=== PATIENT | female | born 1970 | race Caucasian/White ===

== ENCOUNTER 2022-06-23 13:58 | Inpatient (IN) | payer OTHER ==
[2022-06-23 15:38] VITALS: BMI 23.8
[2022-06-23] MEDS ORDERED: MAGNESIUM HYDROX 2400MG/30ML ORAL SUSPENSION 30 ML CUP PO PRN (17:53)
[2022-06-23] MEDS ORDERED: BENZOCAINE/MENTHOL (CHLORASEPTIC ) LOZENGE MM PRN (17:53)
[2022-06-23] MEDS ORDERED: LOPERAMIDE HCL 2 MG CAPSULE PO PRN (17:53)
[2022-06-23] MEDS ORDERED: MAGNESIUM CITRATE 300 ML BOTTLE PO PRN (17:53)
[2022-06-23] MEDS ORDERED: ACETAMINOPHEN 325 MG TABLET (FP) PO PRN ×2 (17:53)
[2022-06-23] MEDS ORDERED: IBUPROFEN 600 MG TABLET (FP) PO PRN (17:53)
[2022-06-23] MEDS ORDERED: BISMUTH SUBSALICYLATE 524 MG/30 ML PO PRN (17:53)
[2022-06-23] MEDS ORDERED: METHOCARBAMOL 500 MG TABLET PO PRN (17:53)
[2022-06-23] MEDS ORDERED: IBUPROFEN 400 MG TABLET (FP) PO PRN (17:53)
[2022-06-23] MEDS ORDERED: chlordiazePOXIDE HCL 25 MG CAPSULE PO PRN (17:53)
[2022-06-23] MEDS ORDERED: ONDANSETRON *ODT* 4 MG TABLET SL PRN (17:53)
[2022-06-23] MEDS: PRENATAL VITAMINS W/ FOLIC ACID TABLET (FP) PO SCH (18:59)
[2022-06-23] MEDS: hydrOXYzine PAMOATE 25 MG CAPSULE (FP) PO SCH ×2 (19:06→23:22)
[2022-06-23] MEDS: THIAMINE HCL 100 MG TABLET (FP) PO SCH (22:37)
[2022-06-23] MEDS: levETIRAcetam 500 MG TABLET (FP) PO SCH (22:37)
[2022-06-23] MEDS: chlordiazePOXIDE HCL 25 MG CAPSULE PO SCH (22:37)
[2022-06-23] MEDS: MELATONIN 5 MG TABLETS PO SCH (22:37)
[2022-06-24] MEDS: chlordiazePOXIDE HCL 25 MG CAPSULE PO SCH ×4 (06:10→22:45)
[2022-06-24] MEDS: hydrOXYzine PAMOATE 25 MG CAPSULE (FP) PO SCH (06:11)
[2022-06-24] MEDS ORDERED: hydrOXYzine PAMOATE 25 MG CAPSULE (FP) PO PRN (09:20)
[2022-06-24] MEDS ORDERED: methaDONE HCL 10 MG TABLET PO SCH (09:30)
[2022-06-24] MEDS: levETIRAcetam 500 MG TABLET (FP) PO SCH ×2 (10:42→22:44)
[2022-06-24] MEDS: PRENATAL VITAMINS W/ FOLIC ACID TABLET (FP) PO SCH (10:42)
[2022-06-24 11:08] LABS: HEMATOCRIT 43.2 % (32.4-45.2); HEMOGLOBIN 14.3 GM/dL (10.7-15.3); MCH 30.5 pg (25.7-33.7); MEAN CELL VOLUME 92.4 fl (80-96); MEAN PLT VOLUME 8.3 fl (7.5-11.1); PLATELET COUNT 223 10^3/uL (134-434); RBC 4.68 M/mm3 (3.60-5.2); RDW 13.8 % (11.6-15.6); WHITE BLOOD COUNT 4.5 K/mm3 (4.0-10.0)
[2022-06-24 11:43] LABS: CALCIUM 9.9 mg/dL (8.5-10.1)
[2022-06-24 11:44] LABS: ALBUMIN 3.2 g/dl (3.4-5.0); BLOOD UREA NITROGEN 12.3 mg/dL (7-18)
[2022-06-24 11:47] LABS: CREATININE 0.7 mg/dL (0.55-1.3)
[2022-06-24 11:48] LABS: BILIRUBIN,TOTAL 0.3 mg/dL (0.2-1)
[2022-06-24 11:49] LABS: TOT PROT 8.1 g/dl (6.4-8.2)
[2022-06-24] MEDS: DICYCLOMINE HCL 10 MG CAPSULE PO PRN (20:33)
[2022-06-24] MEDS: NICOTINE 10 MG CARTRIDGE (INHALER) IH PRN (20:33)
[2022-06-24] MEDS: MELATONIN 5 MG TABLETS PO SCH (22:44)
[2022-06-24] MEDS: THIAMINE HCL 100 MG TABLET (FP) PO SCH (22:44)
[2022-06-25] MEDS: chlordiazePOXIDE HCL 25 MG CAPSULE PO SCH ×4 (05:45→23:21)
[2022-06-25] MEDS: NICOTINE 10 MG CARTRIDGE (INHALER) IH PRN (10:45)
[2022-06-25] MEDS: levETIRAcetam 500 MG TABLET (FP) PO SCH ×2 (10:45→22:22)
[2022-06-25] MEDS: PRENATAL VITAMINS W/ FOLIC ACID TABLET (FP) PO SCH (10:45)
[2022-06-25] MEDS: DICYCLOMINE HCL 10 MG CAPSULE PO PRN (18:15)
[2022-06-25] MEDS: MAG HYDROX/AL HYDROX/SIMETH 30 ML UNIT-DOSE CUP PO PRN (19:54)
[2022-06-25] MEDS: MELATONIN 5 MG TABLETS PO SCH (22:22)
[2022-06-25] MEDS: THIAMINE HCL 100 MG TABLET (FP) PO SCH (22:22)
[2022-06-26] MEDS ORDERED: chlordiazePOXIDE HCL 10 MG CAPSULE PO PRN
[2022-06-26] MEDS: chlordiazePOXIDE HCL 10 MG CAPSULE PO SCH ×4 (06:14→22:54)
[2022-06-26] MEDS: NICOTINE 10 MG CARTRIDGE (INHALER) IH PRN ×3 (06:15→18:07)
[2022-06-26] MEDS: PRENATAL VITAMINS W/ FOLIC ACID TABLET (FP) PO SCH (10:10)
[2022-06-26] MEDS: levETIRAcetam 500 MG TABLET (FP) PO SCH ×2 (10:10→22:53)
[2022-06-26] MEDS: MAG HYDROX/AL HYDROX/SIMETH 30 ML UNIT-DOSE CUP PO PRN (14:38)
[2022-06-26] MEDS: MELATONIN 5 MG TABLETS PO SCH (22:53)
[2022-06-26] MEDS: THIAMINE HCL 100 MG TABLET (FP) PO SCH (22:53)
[2022-06-27] MEDS: chlordiazePOXIDE HCL 10 MG CAPSULE PO SCH ×2 (05:26→18:07)
[2022-06-27] MEDS: NICOTINE 10 MG CARTRIDGE (INHALER) IH PRN ×4 (05:35→18:09)
[2022-06-27] MEDS: levETIRAcetam 500 MG TABLET (FP) PO SCH ×2 (09:46→22:51)
[2022-06-27] MEDS: PRENATAL VITAMINS W/ FOLIC ACID TABLET (FP) PO SCH (09:46)
[2022-06-27] MEDS: MAG HYDROX/AL HYDROX/SIMETH 30 ML UNIT-DOSE CUP PO PRN (09:46)
[2022-06-27] MEDS: MELATONIN 5 MG TABLETS PO SCH (22:51)
[2022-06-27] MEDS: THIAMINE HCL 100 MG TABLET (FP) PO SCH (22:51)
[2022-06-28] MEDS ORDERED: chlordiazePOXIDE HCL 10 MG CAPSULE PO ONE (05:00)
[2022-06-28] MEDS: DICYCLOMINE HCL 10 MG CAPSULE PO PRN (06:01)
[2022-06-28] MEDS: NICOTINE 10 MG CARTRIDGE (INHALER) IH PRN ×3 (06:03→12:42)
[2022-06-28 09:10] VITALS: RESP 18
[2022-06-28] MEDS: levETIRAcetam 500 MG TABLET (FP) PO SCH (10:25)
[2022-06-28] MEDS: PRENATAL VITAMINS W/ FOLIC ACID TABLET (FP) PO SCH (10:25)
[2022-06-28 13:48] VITALS: BP 104/65; PULSE 63; TEMP 97.3
== END 2022-06-28 15:16 | disposition home or self-care (01) | DRG 773 ==
LOC: YASAS 13:58 → Y3N 17:03
PROVIDERS: ADMIT Allergy & Immunology; ATTEND Surgery
PROC: HZ2ZZZZ Detoxification Services for Substance Abuse Treatment (ICD-10-PCS; principal; 2022-06-23)
DX: F11.23 Opioid dependence with withdrawal (principal); F10.230 Alcohol dependence with withdrawal, uncomplicated; F14.20 Cocaine dependence, uncomplicated; F17.210 Nicotine dependence, cigarettes, uncomplicated; G40.909 Epilepsy, unspecified, not intractable, without status epilepticus; W18.39XA Other fall on same level, initial encounter; Y93.89 Activity, other specified; Y92.230 Patient room in hospital as the place of occurrence of the external cause; Z28.310 Unvaccinated for COVID-19; Z88.0 Allergy status to penicillin; Z91.013 Allergy to seafood
CPT/HCPCS: 36415; 80053; 81025; 85027; 86780; 93005; 93010; C9803-CS; U0003; U0005

== ENCOUNTER 2023-05-02 12:06 | Inpatient (IN) | payer OTHER ==
[2023-05-02 12:30] VITALS: BMI 24.2
[2023-05-02] MEDS ORDERED: AMMONIUM LACTATE 12% LOTION 225 GM BOTTLE TP PRN (14:18)
[2023-05-02] MEDS ORDERED: COLLOIDAL OATMEAL 1 BAR EACH TP PRN (14:18)
[2023-05-02] MEDS ORDERED: guaiFENesin 600 MG TABLET.ER (FP) PO PRN (14:18)
[2023-05-02] MEDS ORDERED: NICOTINE POLACRILEX 2 MG GUM BUC PRN (14:18)
[2023-05-02] MEDS ORDERED: NICOTINE 10 MG CARTRIDGE (INHALER) IH PRN (14:18)
[2023-05-02] MEDS ORDERED: NALOXONE HCL (KLOXXADO) 8 MG SPRAY NS PRN (14:18)
[2023-05-02] MEDS ORDERED: NALOXONE HCL 0.4 MG/ML VIAL IM PRN (14:18)
[2023-05-02] MEDS ORDERED: MAGNESIUM HYDROX 2400MG/30ML ORAL SUSPENSION 30 ML CUP PO PRN (14:18)
[2023-05-02] MEDS ORDERED: ONDANSETRON *ODT* 4 MG TABLET SL PRN (14:18)
[2023-05-02] MEDS ORDERED: LOPERAMIDE HCL 2 MG CAPSULE PO PRN (14:18)
[2023-05-02] MEDS ORDERED: hydrOXYzine PAMOATE 25 MG CAPSULE (FP) PO PRN (14:18)
[2023-05-02] MEDS ORDERED: POLYETHYLENE GLYCOL (HEALTHYLAX) 3350 17 GM PACKET PO PRN (14:18)
[2023-05-02] MEDS ORDERED: BENZOCAINE/MENTHOL (CHLORASEPTIC ) LOZENGE MM PRN (14:18)
[2023-05-02] MEDS ORDERED: BISMUTH SUBSALICYLATE 262 MG/15 ML BTL PO PRN (14:18)
[2023-05-02] MEDS ORDERED: MAG HYDROX/AL HYDROX/SIMETH 30 ML UNIT-DOSE CUP PO PRN (14:18)
[2023-05-02] MEDS ORDERED: METHOCARBAMOL 500 MG TABLET PO PRN (14:18)
[2023-05-02] MEDS ORDERED: IBUPROFEN 400 MG TABLET (FP) PO PRN (14:18)
[2023-05-02] MEDS ORDERED: DICYCLOMINE HCL 10 MG CAPSULE PO PRN (14:18)
[2023-05-02] MEDS ORDERED: ACETAMINOPHEN 325 MG TABLET (FP) PO PRN (14:18)
[2023-05-02] MEDS ORDERED: BENZONATATE 200 MG CAPSULE PO PRN (14:18)
[2023-05-02] MEDS ORDERED: IBUPROFEN 600 MG TABLET (FP) PO PRN (14:18)
[2023-05-02 16:31] LABS: HEMATOCRIT 38.8 % (32.4-45.2); HEMOGLOBIN 13.1 GM/dL (10.7-15.3); MCH 30.7 pg (25.7-33.7); MCHC 33.8 g/dl (32.0-36.0); MEAN CELL VOLUME 90.6 fl (80-96); MEAN PLT VOLUME 7.7 fl (7.5-11.1); PLATELET COUNT 277 10^3/uL (134-434); RBC 4.29 M/mm3 (3.60-5.2); RDW 13.2 % (11.6-15.6)
[2023-05-02 16:51] LABS: POTASSIUM 3.9 mmol/L (3.5-5.1)
[2023-05-02 16:53] LABS: CALCIUM 9.1 mg/dL (8.5-10.1)
[2023-05-02 16:55] LABS: ALBUMIN 3.1 g/dl (3.4-5.0); BLOOD UREA NITROGEN 12.4 mg/dL (7-18)
[2023-05-02 16:57] LABS: CREATININE 0.7 mg/dL (0.55-1.3)
[2023-05-02 16:59] LABS: BILIRUBIN,TOTAL 0.9 mg/dL (0.2-1); TOT PROT 8.2 g/dl (6.4-8.2)
[2023-05-02] MEDS: MELATONIN 5 MG TABLETS PO SCH (22:31)
[2023-05-02] MEDS: levETIRAcetam 500 MG TABLET (FP) PO SCH (22:32)
[2023-05-02] MEDS: THIAMINE HCL 100 MG TABLET (FP) PO SCH (22:32)
[2023-05-03] MEDS ORDERED: methaDONE HCL 40 MG DISPERSABLE TABLET PO SCH (06:00)
[2023-05-03] MEDS: levETIRAcetam 500 MG TABLET (FP) PO SCH ×2 (10:19→22:19)
[2023-05-03] MEDS: PRENATAL VITAMINS W/ FOLIC ACID TABLET (FP) PO SCH (10:19)
[2023-05-03] MEDS: THIAMINE HCL 100 MG TABLET (FP) PO SCH (22:19)
[2023-05-03] MEDS: MELATONIN 5 MG TABLETS PO SCH (22:19)
[2023-05-04 06:37] VITALS: RESP 16
[2023-05-04 08:57] VITALS: BP 143/81; PULSE 62; TEMP 97.1
[2023-05-04] MEDS: PRENATAL VITAMINS W/ FOLIC ACID TABLET (FP) PO SCH (09:36)
[2023-05-04] MEDS: levETIRAcetam 500 MG TABLET (FP) PO SCH (09:36)
== END 2023-05-04 10:35 | disposition other institution (70) | DRG 773 ==
LOC: YASAS 12:06 → Y3N 13:52
PROVIDERS: ADMIT Allergy & Immunology; ATTEND Surgery
PROC: HZ2ZZZZ Detoxification Services for Substance Abuse Treatment (ICD-10-PCS; principal; 2023-05-02)
DX: F11.20 Opioid dependence, uncomplicated (principal); F10.20 Alcohol dependence, uncomplicated; F14.20 Cocaine dependence, uncomplicated; F12.20 Cannabis dependence, uncomplicated; F17.210 Nicotine dependence, cigarettes, uncomplicated; G40.909 Epilepsy, unspecified, not intractable, without status epilepticus
CPT/HCPCS: 36415; 80053; 81025; 82140; 85027; 86780; 87635